=== PATIENT | female | born 1955 | race Caucasian/White ===

== ENCOUNTER 2022-07-24 14:25 | Inpatient (IN) | payer MEDICARE, BC ==
[~2022-07-24] VITALS: Ht 157.5 cm; Wt 49.0 kg
--- NOTE | 2022-07-24 14:27 | NUR ---
Dr Echeverria is with the patient in the triage area. Medical screening exam in progress.
[2022-07-24] MEDS ORDERED: ALPR1TAB7 PO (14:39)
[2022-07-24] MEDS ORDERED: GABA-532 PO ×2 (14:39)
[2022-07-24] MEDS ORDERED: ESCI20TA PO (14:39)
[2022-07-24] MEDS ORDERED: BUPR-96 PO (14:39)
[2022-07-24] MEDS ORDERED: OLAN2.5T3 PO (14:39)
--- NOTE | 2022-07-24 15:11 | NUR ---
Rental Representative assumes care: received patient alert, awake, calmly sitting on a chair in ER room 5A. Patient's respiration is easy and nonlabored, oriented to name only and able to follows simple commands. Patient is for medical clearance so this patient can be admitted to our geriatric mental psychiatric health unit at this time.
--- NOTE | 2022-07-24 15:15 | NUR ---
Patient is not able to provide urine at this time, Dr Echeverria notified.
--- NOTE | 2022-07-24 15:18 | NUR ---
Medically cleared by Dr Echeverria, pending callback from U nurse Marilee at this time.
--- NOTE | 2022-07-24 15:23 | NUR ---
Security assistance was requested for 1:1 observation while in ER and transfer assistance to MHU.
[2022-07-24] MEDS ORDERED: MAGNESIUM HYDROXIDE 30 ML LIQUID UDC PO PRN (16:00)
[2022-07-24] MEDS ORDERED: MAG HYDROX/AL HYDROX/SIMETH 30 ML LIQUID UDC PO PRN (16:00)
[2022-07-24] MEDS ORDERED: BLOOD SUGAR DIAGNOSTIC 1 EACH STRIP VI ONE (16:00)
[2022-07-24] MEDS ORDERED: ACETAMINOPHEN 325 MG TABLET PO PRN (16:00)
--- NOTE | 2022-07-24 16:03 | NUR ---
Admitted a case of 66 years old female from home with history of Psychosis. Patient is on 5150 hold status. Patient arrived in a wheel chair accompanied by PATROL GUARD from ER. Initial report given by Nicole LEZAMA. On admission patient was cooperative to physical assessment and vital signs. Vital signs within normal limits. Patient ambulates independently, steady gait. Upon face to face, patient appeared alert, oriented to person, redirectable, cooperative. Patient denies any suicidal or homicidal ideation. Patient was also offered brief orientation to unit rules and policies and given a copy of patient's rights handbook. Patient belongings were accounted and no contrabands found. Psychiatrist Deion and Medical physician Devan were informed and orders were carried out. Patient is currently free of pain or any discomfort. Patient is encourage to vent feelings and emotions. Fall and safety precautions implemented.
[2022-07-24 17:07] VITALS: BP 124/71
--- NOTE | 2022-07-24 19:35 | NUR ---
Received patient up the hallways, pacing, looking for her shoes. Explained to patient that we have her shoes in locker and that her shoes is not safe to wear at this time. Patient provided hospital socks, explained the policy to her but don't care about the rules. Patient refused vital signs to be taken, slightly agitated, cont to reorient.
--- NOTE | 2022-07-24 23:00 | NUR ---
Patient stayed in her room, she went to bed, no further episode of anxiety, cont to monitor.
[2022-07-25 07:30] VITALS: BP 137/73
[2022-07-25 07:47] LABS: HEMATOCRIT 43.3 % (31.2-41.9); MEAN CORPUSCULAR HEMOGLOBIN 29.9 uug (24.7-32.8); PLATELET COUNT (AUTO) 254 K/uL (179-408)
[2022-07-25 08:21] LABS: CREATININE 0.7 mg/dL (0.6-1.3); POTASSIUM 3.5 mmol/L (3.5-5.1)
[2022-07-25] MEDS: GABAPENTIN 100 MG CAPSULE PO SCH ×2 (12:14→17:26)
[2022-07-25 15:18] VITALS: BP 136/66
--- NOTE | 2022-07-25 16:24 | NUR ---
VISHAL Initial Discharge Note: Pt currently resides at home with her and caregiver located at [address] [facility] per hold. VISHAL contactd pt's , Santiago ([phone]) and left a voicemail for a call back to discuss pt's discharge plan. VISHAL will continue to work with pt, family and MD to ensure a safe and proper discharge plan.
--- NOTE | 2022-07-25 16:32 | NUR ---
Patient is talkative, argumentative, suspicious, paranoid about people and situations. Patient states "How do you know about my life?" "I need to see the medication before I take it. What if you give me the wrong one?" "I don't think this place is real, everything seems fake" Patient gets more confused when sun goes down, becomes more agitated. Patient is A/O X 2 -3 to person, place. Reality orientation provided. Fall and safety precautions implemented.
[2022-07-25 19:54] VITALS: BP 144/70
[2022-07-25] MEDS: ESCITALOPRAM OXALATE 10 MG TABLET PO SCH (20:57)
[2022-07-25] MEDS: OLANZAPINE ZYDIS 5 MG TAB.RAPDIS PO SCH (20:57)
[2022-07-25] MEDS: CLONAZEPAM 0.5 MG TABLET PO PRN (21:27)
--- NOTE | 2022-07-26 01:05 | NUR ---
Received patient in the day room. Awake and alert. Willing to engage in meaningful conversation with this telegraphic typewriter installer at that time. Patient showed some insight to her problems and made statements " I know I am paranoid and I should not have acted the way I did to my caregiver. I am always afraid of being alone and my has been gone ".The patient took her medications without difficulty and asked for " anxiety pill ". Safety Stratiges are in place and continuing to monitor for behavior escalation and psychotic outburst. The patient told this telegraphic typewriter installer that she " Hears voices ". but would not elaborate any further.
[2022-07-26 08:00] VITALS: BP 111/66
[2022-07-26] MEDS: GABAPENTIN 100 MG CAPSULE PO SCH ×2 (08:23→17:42)
[2022-07-26 16:00] VITALS: BP 134/65
--- NOTE | 2022-07-26 17:11 | NUR ---
Received patient pacing in the hallway. Patient is cooperative, compliant with medications, paranoid and suspicious at times. Patient is having left abdominal pain, Sweet Pickled Fruit Maker ordered XR left ribs w/cxr, will be monitored for results. Patient is A/O X 2 to person, place. Patient ambulates independently, continent, requires no assistance with ADL. Active listening provided. Fall and safety precautions implemented.
[2022-07-26] MEDS: ESCITALOPRAM OXALATE 10 MG TABLET PO SCH (20:38)
[2022-07-26] MEDS: OLANZAPINE ZYDIS 5 MG TAB.RAPDIS PO SCH (20:39)
[2022-07-26] MEDS: ATORVASTATIN 10 MG TABLET PO SCH (20:40)
[2022-07-26 20:58] VITALS: BP 124/57
[2022-07-26] MEDS: CLONAZEPAM 0.5 MG TABLET PO PRN (22:18)
--- NOTE | 2022-07-27 02:28 | NUR ---
Patient was anxious and paranoid at the start of the shift. Same behavior as the night before. Encouragement needed when administering the medications. The patient is able to verbalize coping stratiges but admits to not " Doing the work". She ruminates on delusions and unfounded facts. Constantly worrying about " What if " or " Maybe " "this and that ". Reassurance and reality based conversation ongoing. Safety Stratiges are in place.
[2022-07-27 07:35] VITALS: BP 128/69
[2022-07-27] MEDS: GABAPENTIN 100 MG CAPSULE PO SCH ×2 (08:35→17:20)
[2022-07-27 10:01] LABS: HEMATOCRIT 40.3 % (31.2-41.9); MEAN CORPUSCULAR HEMOGLOBIN 29.9 uug (24.7-32.8); PLATELET COUNT (AUTO) 239 K/uL (179-408)
[2022-07-27 10:37] LABS: THYROID STIMULATING HORMONE 1.049 mIU/mL (0.358-3.740)
[2022-07-27 10:54] LABS: BILIRUBIN,TOTAL 0.4 mg/dL (0.2-1.0); CREATININE 0.8 mg/dL (0.6-1.3); MAGNESIUM 1.8 mg/dL (1.8-2.4); PHOSPHOROUS 3.6 mg/dL (2.5-4.9); TOTAL PROTEIN, SERUM 6.6 g/dL (6.4-8.2)
--- NOTE | 2022-07-27 14:22 | NUR ---
GPS: Nursing Notes: Destructive Behavior To Others: Patient is awake and responding to her name, gets easily anxious when redirected, states "I am afraid..." "I did something bad...I am getting punished..", redirected during shift, no interaction with peers, isolative in her room, unable to formulate a viable plan for self care, no aggressive behavior noted, continue to monitor for safety, continue with treatment plan.
[2022-07-27 16:10] VITALS: BP 123/65
[2022-07-27 20:00] VITALS: BP 117/58
[2022-07-27] MEDS: OLANZAPINE ZYDIS 5 MG TAB.RAPDIS PO SCH (20:43)
[2022-07-27] MEDS: ESCITALOPRAM OXALATE 10 MG TABLET PO SCH (20:43)
[2022-07-27] MEDS: ATORVASTATIN 10 MG TABLET PO SCH (20:43)
[2022-07-27] MEDS: CLONAZEPAM 0.5 MG TABLET PO PRN (22:35)
--- NOTE | 2022-07-28 01:31 | NUR ---
Patient was anxious and hyperverbal at this start of the shift. Worried about filling out a menu for the am, worried about weather to eat Jello with sugar or sugar free. Principal Technical Specialist noticed the patient struggling to make up her mind. Anxious statements such as " The Doctor said he will see me tomorrow. Will he know where to find me? Does he know what room I am in ? What time is he coming so I can be ready. " The patient needed to be reassured multiple times during the night was medicated with a PRN for anxiety and that helped alleviate some of the anxiety.Safety Stratiges are in place.
[2022-07-28 07:44] VITALS: BP 131/61
[2022-07-28] MEDS: GABAPENTIN 100 MG CAPSULE PO SCH ×2 (08:42→17:02)
--- NOTE | 2022-07-28 14:18 | NUR ---
GPS: Nursing Notes: Destructive Behavior To Others: Patient is awake and responding to her name, isolative and withdrawn in her room this am, gets easily anxious when redirected, stated "I feel the same as yesterday..I am here because I did something bad...", encouraged to participate in therapeutic groups, anxious affect, unable to formulate a viable plan for self care, no aggressive behavior noted, continue to monitor for safety, continue with treatment plan.
[2022-07-28 16:15] VITALS: BP 115/64
[2022-07-28 19:55] VITALS: BP 115/51
[2022-07-28 20:00] LABS: *BILIRUBIN,URIN NEGATIVE (NEGATIVE); *BLOOD, URINE NEGATIVE (NEGATIVE); *CLARITY,URINE CLEAR (CLEAR); *COLOR,URINE YELLOW (YELLOW); *KETONES,URINE NEGATIVE (NEGATIVE); *UROBILINOGEN,URINE 0.2 E.U./dl (NORMAL); LEUKOCYTE ESTERASE ,URINE NEGATIVE (NEGATIVE); NITRITE, URINE NEGATIVE (NEGATIVE); PH,URINE 6.5 (5.0-8.0); UGLUCOSE NEGATIVE (NEGATIVE)
[2022-07-28] MEDS: ATORVASTATIN 10 MG TABLET PO SCH ×2 (21:00→21:13)
--- NOTE | 2022-07-28 21:00 | NUR ---
GPS: NURSING NOTES: PATIENT IS ALERT AND ORIENTED REQUESTED MEDICATION ORDERED ALONG WITH A SLEEPING PILL FALL AND SAFETY MAINTAINED. PT INTERACT WITH PEER IN DAYROOM WATCH TV AND DISCUSSES MOVIE. PT IS CALM NO SIGNS OF AGGRESSIVE BEHAVIOR NOTED. WILL CONTINUE PLAN OF CARE ALONG WITH MAINTAINING SAFETY AND FALL.
[2022-07-28] MEDS: ESCITALOPRAM OXALATE 10 MG TABLET PO SCH (21:13)
[2022-07-28] MEDS: OLANZAPINE ZYDIS 5 MG TAB.RAPDIS PO SCH (21:13)
[2022-07-28] MEDS: TEMAZEPAM 7.5 MG CAPSULE PO PRN (21:14)
[2022-07-29 08:18] VITALS: BP 134/98
[2022-07-29] MEDS: GABAPENTIN 100 MG CAPSULE PO SCH ×2 (08:56→16:36)
--- NOTE | 2022-07-29 11:09 | NUR ---
Patient had 5250 probable cause hearing today and it was upheld for grave disability.
--- NOTE | 2022-07-29 13:32 | NUR ---
GPS: Nursing Notes: Destructive Behavior To Others: Patient is awake and responding to her name, gets easily anxious when redirected, poor impulse control at times, stated "The hospital is going to toss to the street.. I have no place to go..", anxious affect, internally preoccupied, "My insurance does cover me... Where am I going?", redirected during shift, compliant with her medications, unable to formulate a viable plan for self care, no aggressive behavior noted, continue to monitor for safety, continue with treatment plan.
[2022-07-29 16:19] VITALS: BP 147/70
[2022-07-29 19:49] VITALS: BP 107/58
[2022-07-29] MEDS: ATORVASTATIN 10 MG TABLET PO SCH (20:26)
[2022-07-29] MEDS: OLANZAPINE ZYDIS 5 MG TAB.RAPDIS PO SCH (20:26)
[2022-07-29] MEDS: ESCITALOPRAM OXALATE 10 MG TABLET PO SCH (20:26)
[2022-07-29] MEDS: CLONAZEPAM 0.5 MG TABLET PO PRN (21:55)
--- NOTE | 2022-07-30 01:51 | NUR ---
Received the patient in the day room. Awake and alert. Some anxiety noted , and many questions asked about the medications she has been taking. This abstract writer educated the patient and answered all her questions. The patient verbalized understanding at that point . Later in the shift, the patient requested to sleep in a different room d/t her room mates snoring and asked for " Something that might help my anxiety". A PRN was given and the patient has been resting for the last couple of hours, without any issues or worries. Safety Stratiges remain in place, and reassurance provided as needed.
[2022-07-30 08:06] VITALS: BP 123/59
[2022-07-30] MEDS: GABAPENTIN 100 MG CAPSULE PO SCH ×2 (08:30→17:13)
--- NOTE | 2022-07-30 14:06 | NUR ---
VISHAL Discharge Update: VISHAL spoke with pt's , Santiago ([phone]) regarding pt's discharge plan. Santiago alleged to this SW that pt stated to Santiago she is having homicidal thoughts. VISHAL stated she will inform the psychiatrist. Santiago stated she is welcome to return home upon discharge if she is not having homicidal ideations. VISHAL will continue to update Santiago and work with the MD and pt to ensure a safe and proper discharge plan.
[2022-07-30] MEDS: CLONAZEPAM 0.5 MG TABLET PO PRN ×2 (14:30→21:28)
[2022-07-30 16:14] VITALS: BP 126/55
--- NOTE | 2022-07-30 16:56 | NUR ---
GPS: Nursing Notes: Destructive Behavior To Others: Patient is awake and responding to her name, gets easily anxious when redirected, compliant with his medications, believes that she got no place to go, redirected during shift, stated "I have no place go.. My has abandoned me.." unable to formulate a viable plan for self care, stated "I tried to hurt my caregiver...Where should I go?" continue to monitor for safety, needs prompting to participate in therapeutic groups, continue with treatment plan.
[2022-07-30 20:00] VITALS: BP 107/58
[2022-07-30] MEDS: OLANZAPINE ZYDIS 5 MG TAB.RAPDIS PO SCH (20:54)
[2022-07-30] MEDS: ESCITALOPRAM OXALATE 10 MG TABLET PO SCH (20:54)
[2022-07-30] MEDS: ATORVASTATIN 10 MG TABLET PO SCH (20:55)
--- NOTE | 2022-07-31 06:38 | NUR ---
Received patient watching TV at the start of the shift. This medical writer observed that the patient was less paranoid, worried and anxious then the previous shifts. The patient is able to formulate her thoughts and practice stress reducing techniques. A few times the patient seemed to begin getting increasingly fixated and nervous about something small or a delusion being created in her mind. Then, this medical writer noticed that she became conscious of what she was doing and stop herself from elevating to a place that has been uncontrollable and uncomfortable. Besides refusing Cholesterol medications, the patient has been compliant. Safety Stratiges are in place . Continuing to monitor the patient for any increase in anxiety.
[2022-07-31 07:49] VITALS: BP 114/60
[2022-07-31] MEDS: GABAPENTIN 100 MG CAPSULE PO SCH ×2 (08:37→17:06)
--- NOTE | 2022-07-31 14:55 | NUR ---
VISHAL Discharge Update: VISHAL spoke with pt's , Santiago ([phone]) regarding pt's discharge plan. Santiago is agreeable for pt to possibly discharge to a detention facility upon discharge. VISHAL and Santiago discussed [place] as an option due to pt living in [place]. VISHAL will continue to speak to Santiago regarding pt's updates and work on pt's safe discharge plan.
[2022-07-31 15:26] VITALS: BP 124/61
--- NOTE | 2022-07-31 18:29 | NUR ---
Received pt in room awake . Up on approach pt seems calm , less anxious and less paranoid. Pt Stated " does my knows the number for this unit? how is he going to contact me?" . Pt was provided with a phone to call her . Once pt spoke to pt was more calm. Reassurance provided. Encourage pt participate in group activities and pt was compliant and attended group activities. Continue to monitor for safety, continue with treatment plan.
[2022-07-31 19:59] VITALS: BP 126/50
[2022-07-31] MEDS: CEphaleXIN 250 MG CAPSULE PO SCH (20:00)
[2022-07-31] MEDS: ATORVASTATIN 10 MG TABLET PO SCH (21:00)
[2022-07-31] MEDS: ESCITALOPRAM OXALATE 10 MG TABLET PO SCH (21:10)
[2022-07-31] MEDS: OLANZAPINE ZYDIS 5 MG TAB.RAPDIS PO SCH (21:10)
[2022-07-31] MEDS: CLONAZEPAM 0.5 MG TABLET PO PRN (21:17)
--- NOTE | 2022-07-31 21:26 | NUR ---
Patient is more paranoid and anxious tonight. Refusing to take the Antibiotics or Cholesterol medications. Patient is complaining " My Doctors do not introduce themselves. I can't take antibiotics, especially Keflex. It is too strong. If I had some fresh lemon water I would be fine. Besides, I do not need Antibiotics, I do not have any infection"., and so on. The patient continued to be hyperverbal, and would avoid any questions this global technical writer was asking. Educating and encouraging this patient , proved to be futile at this time. Safety Stratiges remain in place. The patient would not confirm of deny SI or HI , she just skipped over the question . Continue to monitor for escalation in paranoia, anxiety and to provide redirection and refocus when able.
[2022-08-01 07:30] VITALS: BP 117/55
[2022-08-01] MEDS: CEphaleXIN 250 MG CAPSULE PO SCH ×3 (09:00→17:00)
[2022-08-01] MEDS: GABAPENTIN 100 MG CAPSULE PO SCH ×2 (09:54→17:21)
[2022-08-01 15:29] VITALS: BP 111/57
--- NOTE | 2022-08-01 17:00 | NUR ---
Gps/Shoe Sprayer- Refusing to take he oral abx. reviewed with patient reason, claimed her Doctor never come to see her and does not explained her medications. Informed patient that the Nurses can explained it, claimed preferred Doctor to explained . Abelino pain no discomfort Continue to attend her group activity,
[2022-08-01 20:08] VITALS: BP 107/49
[2022-08-01] MEDS: ATORVASTATIN 10 MG TABLET PO SCH (21:00)
[2022-08-01] MEDS: GABAPENTIN 300 MG CAPSULE PO SCH (21:10)
[2022-08-01] MEDS: ESCITALOPRAM OXALATE 10 MG TABLET PO SCH (21:10)
[2022-08-01] MEDS: OLANZAPINE ZYDIS 5 MG TAB.RAPDIS PO SCH (21:11)
[2022-08-01] MEDS: CLONAZEPAM 0.5 MG TABLET PO PRN (22:00)
[2022-08-02 08:14] VITALS: BP 113/53
[2022-08-02] MEDS: GABAPENTIN 100 MG CAPSULE PO SCH ×2 (08:53→16:50)
[2022-08-02] MEDS: CEphaleXIN 250 MG CAPSULE PO SCH ×3 (08:54→16:50)
[2022-08-02] MEDS: CLONAZEPAM 0.5 MG TABLET PO PRN (13:34)
[2022-08-02 15:51] VITALS: BP 118/57
[2022-08-02] MEDS: ESCITALOPRAM OXALATE 10 MG TABLET PO SCH (20:31)
[2022-08-02] MEDS: ATORVASTATIN 10 MG TABLET PO SCH (20:39)
[2022-08-02] MEDS: GABAPENTIN 300 MG CAPSULE PO SCH (20:56)
[2022-08-02] MEDS: OLANZAPINE ZYDIS 5 MG TAB.RAPDIS PO SCH (21:00)
[2022-08-02 22:34] VITALS: BP 121/63
[2022-08-03 07:56] VITALS: BP 114/60
[2022-08-03] MEDS: CEphaleXIN 250 MG CAPSULE PO SCH ×3 (09:47→16:40)
[2022-08-03] MEDS: GABAPENTIN 100 MG CAPSULE PO SCH ×2 (09:47→16:40)
--- NOTE | 2022-08-03 15:06 | NUR ---
Gps/Hospital Corpsman- Attends and participates in her group activity , verbalized needs and feelings . Hesitancy taking her routine meds, claimed she does not need oral abx. Deneis ant pain, no discomfort
[2022-08-03 16:32] VITALS: BP 121/62
[2022-08-03] MEDS: ESCITALOPRAM OXALATE 10 MG TABLET PO SCH (20:10)
[2022-08-03] MEDS: GABAPENTIN 300 MG CAPSULE PO SCH (20:10)
[2022-08-03] MEDS: ATORVASTATIN 10 MG TABLET PO SCH (20:11)
[2022-08-03] MEDS: OLANZAPINE ZYDIS 5 MG TAB.RAPDIS PO SCH (20:11)
[2022-08-03 20:37] VITALS: BP 111/57
[2022-08-03] MEDS: LORAZEPAM 1 MG TABLET PO PRN (21:36)
[2022-08-04 08:00] VITALS: BP 114/59
[2022-08-04] MEDS: CEphaleXIN 250 MG CAPSULE PO SCH ×3 (08:31→16:58)
[2022-08-04] MEDS: GABAPENTIN 100 MG CAPSULE PO SCH ×2 (08:31→16:58)
--- NOTE | 2022-08-04 14:50 | NUR ---
Gps/Fast Food Fry Cook- Taken out to the patio for 15 minutes , patient interacting fairly well with her peers, claimed she cant wait to get out of here, continued compliance with her routine meds noted, had been redirectable
[2022-08-04 16:16] VITALS: BP 126/60
[2022-08-04 20:01] VITALS: BP 118/62
[2022-08-04] MEDS: OLANZAPINE ZYDIS 5 MG TAB.RAPDIS PO SCH (20:54)
[2022-08-04] MEDS: GABAPENTIN 300 MG CAPSULE PO SCH (20:55)
[2022-08-04] MEDS: ATORVASTATIN 10 MG TABLET PO SCH (20:55)
[2022-08-04] MEDS: ESCITALOPRAM OXALATE 10 MG TABLET PO SCH (20:55)
[2022-08-04] MEDS: LORAZEPAM 1 MG TABLET PO PRN (21:52)
[2022-08-05 07:59] VITALS: BP 102/57
[2022-08-05] MEDS: GABAPENTIN 100 MG CAPSULE PO SCH ×2 (08:35→16:36)
[2022-08-05] MEDS: CEphaleXIN 250 MG CAPSULE PO SCH ×2 (08:35→12:16)
--- NOTE | 2022-08-05 14:39 | NUR ---
SW Discharge Update: SW spoke with pt's , Santiago ([phone]) regarding pt's acceptance to [facility] [address] [phone] via FACILITY TRANSPORTATION. Santiago is aware of pt's discharge on Friday and appreciative of the help.
[2022-08-05 15:30] VITALS: BP 106/51
[2022-08-05 20:00] VITALS: BP 128/65
[2022-08-05] MEDS: GABAPENTIN 300 MG CAPSULE PO SCH (20:04)
[2022-08-05] MEDS: OLANZAPINE ZYDIS 5 MG TAB.RAPDIS PO SCH (20:04)
[2022-08-05] MEDS: ESCITALOPRAM OXALATE 10 MG TABLET PO SCH (20:04)
[2022-08-05] MEDS: ATORVASTATIN 10 MG TABLET PO SCH (20:10)
[2022-08-05] MEDS: TEMAZEPAM 7.5 MG CAPSULE PO PRN (21:07)
[2022-08-05] MEDS: LORAZEPAM 1 MG TABLET PO PRN (21:18)
--- NOTE | 2022-08-05 22:12 | NUR ---
Pt c/o insomnia and anxiety. Administered Trazodone 7.5mg PO and Ativan 1mg PO as ordered with good effect. Pt sleeping comfortably in bed at this time. In no acute distress.
[2022-08-06 08:04] VITALS: BP 112/56
[2022-08-06] MEDS: GABAPENTIN 100 MG CAPSULE PO SCH ×2 (08:20→16:44)
--- NOTE | 2022-08-06 14:04 | NUR ---
GPS: Nursing Notes: Destructive Behavior To Others: Patient is awake and responding to her name, needs prompting to participate in therapeutic groups, cooperative with nursing care, A/Ox3, following staff directions, unable to formulate a viable plan for self care, gets easily anxious when redirected at times, no aggressive behavior noted, continue to monitor for safety, continue with treatment plan.
--- NOTE | 2022-08-06 14:41 | NUR ---
SW Discharge Update: VISHAL contacted pt's , Santiago ([phone]) and left a voicemail informing Santiago again of pt's discharge to [facility] [address] [address]) [phone] via FACILITY TRANSPORTATION at 11AM.
[2022-08-06 16:00] VITALS: BP 116/54
[2022-08-06 20:00] VITALS: BP 150/54
[2022-08-06] MEDS: LORAZEPAM 1 MG TABLET PO PRN (20:59)
[2022-08-06] MEDS: GABAPENTIN 300 MG CAPSULE PO SCH (20:59)
[2022-08-06] MEDS: ESCITALOPRAM OXALATE 10 MG TABLET PO SCH (20:59)
[2022-08-06] MEDS: OLANZAPINE ZYDIS 5 MG TAB.RAPDIS PO SCH (20:59)
[2022-08-06] MEDS: ATORVASTATIN 10 MG TABLET PO SCH (21:00)
[2022-08-07 07:51] VITALS: BP 108/45
[2022-08-07] MEDS: GABAPENTIN 100 MG CAPSULE PO SCH (08:49)
[2022-08-07] MEDS: ASPIRIN 81 MG TAB.CHEW PO SCH ×2 (08:49→08:54)
--- NOTE | 2022-08-07 09:00 | NUR ---
Received pt in room,sitting calm on approach.Pt is A/O X3, ambulatory , self care.Pt is compliant with nursing care and most of her medications. Pt can be selective with medications and paranoid at times . Pt will be discharge today to a SNF, Pt is aware and agreeable. Continue to monitor for safety, Continue with treatment plan.
--- NOTE | 2022-08-07 09:47 | NUR ---
VISHAL Discharge Note: Pt will be discharged to [facility] assisted [address] [id number]) [phone] via FACILITY TRANSPORTATION at 11AM by wedding transportation driver, Jeffrey. VISHAL spoke with Aggie myrick at the facility who states they are ready to accept the patient today. Pt is aware and agreeable with discharge plan. Pts , Santiago ([phone]) is aware and agreeable with the discharge plan. Pt is alert and oriented x4, is unable to plan for self-care at this time. However, pt is willing to accept care at SNF. Pt denies any suicidal or homicidal ideation. Pt will follow-up at the facility with Psychiatrist, Dr. Pozo and Environmental Resource Specialist, Dr. Juan. Pt presents with calm mood and congruent affect. PHARMACY: [facility] [address] [facility] [address] .
--- NOTE | 2022-08-07 11:30 | NUR ---
Received orders to discharged pt to [facility] nursing [address] [phone]) [phone] via FACILITY TRANSPORTATION at 11AM by tow driver, Jeffrey. Pt is aware and agreeable with discharge plan. Pts , Santiago ([phone]) is aware and agreeable with the discharge plan. Pt is alert and oriented x3, is unable to plan for self-care at this time. However, pt is willing to accept care at SNF. Pt denies SI/HI, AH/VH, SOB and pain . Pt presents with calm mood and congruent affect, Pt is self care ambulatory and able to make all needs known. Pt was discharge with all belongings and valuables. No behavioral needs noted and no acute distress noted.
== END 2022-08-07 11:30 | DRG 885 ==
LOC: ER 14:25 → GPS 15:28
PROVIDERS: ADMIT Psychiatry & Neurology Psychiatry; ATTEND Internal Medicine
DX: F33.3 Major depressive disorder, recurrent, severe with psychotic symptoms (principal); Z68.1 Body mass index [BMI] 19.9 or less, adult; E78.5 Hyperlipidemia, unspecified; F41.9 Anxiety disorder, unspecified; Z81.8 Family history of other mental and behavioral disorders; R62.7 Adult failure to thrive; G62.9 Polyneuropathy, unspecified; G47.00 Insomnia, unspecified; R41.9 Unspecified symptoms and signs involving cognitive functions and awareness
CPT/HCPCS: 36415; 71101; 82652; 83735; 84100; 84443; 85025; 93005; A4663